=== PATIENT | male | born 1990 | race Caucasian/White ===

== ENCOUNTER 2016-06-19 08:06 | Emergency (ER) | payer OTHER ==
[~2016-06-19] VITALS: Ht 167.6 cm; Wt 101.8 kg
[2016-06-19 08:12] VITALS: BP 128/80
== END 2016-06-19 08:50 | disposition home or self-care (01) ==
LOC: ED 08:06
DX: S51.812D Laceration without foreign body of left forearm, subsequent encounter (principal); R53.81 Other malaise; F10.20 Alcohol dependence, uncomplicated; X58.XXXD Exposure to other specified factors, subsequent encounter; Y99.8 Other external cause status; Y92.89 Other specified places as the place of occurrence of the external cause

== ENCOUNTER 2017-09-06 09:12 | Emergency (ER) | payer OTHER ==
[~2017-09-06] VITALS: Ht 167.6 cm; Wt 98.4 kg
[2017-09-06 09:22] VITALS: BP 124/83; Ht 167.6 cm; Wt 98.4 kg
== END 2017-09-06 09:57 | disposition home or self-care (01) ==
LOC: ED 09:12
DX: J02.9 Acute pharyngitis, unspecified (principal); H66.93 Otitis media, unspecified, bilateral

== ENCOUNTER 2018-05-18 06:26 | Emergency (ER) | payer OTHER ==
[~2018-05-18] VITALS: Ht 167.6 cm; Wt 99.8 kg
[2018-05-18 06:30] VITALS: Ht 167.6 cm; Wt 99.8 kg
[2018-05-18 07:31] VITALS: BP 122/88
== END 2018-05-18 07:31 | disposition home or self-care (01) ==
LOC: ED 06:26
DX: H66.93 Otitis media, unspecified, bilateral (principal)

== ENCOUNTER 2019-04-18 21:15 | Emergency (ER) | payer OTHER ==
[~2019-04-18] VITALS: Ht 172.7 cm; Wt 104.8 kg
[2019-04-18 21:17] VITALS: Ht 172.7 cm; Wt 104.8 kg
[2019-04-18 23:41] LABS: BASOPHIL % 0.3 % (0-2); PLATELET COUNT 311 x10^3mcL (130-400); RED CELL DISTRIBUTION WIDTH 13.4 % (11.5-14.5)
[2019-04-18 23:54] LABS: UA SPECIFIC GRAVITY 1.025 (1.005-1.035); microscopic required? YES; urine erythrocyte 1+ (NEGATIVE)
[2019-04-19 00:09] LABS: CALCIUM 8.9 mg/dL (8.5-10.1); CARBON DIOXIDE 29.2 mmol/L (21-32); CHLORIDE SERUM 105 mmol/L (98-107); CREATININE SERUM 0.7 mg/dL (0.7-1.3); GFR1 > 60 mL/min; GLUCOSE SERUM 88 mg/dL (74-106); POTASSIUM SERUM 3.5 mmol/L (3.5-5.1); SODIUM SERUM 142 mmol/L (136-145)
[2019-04-19 00:17] LABS: ALKALINE PHOSPHATASE 69 U/L (46-116); ALT/SGPT 86 U/L (16-63); AST/SGOT 35 U/L (15-37); BILIRUBIN TOTAL 0.6 mg/dL (0.20-1.00); LIPASE 140 IU/L (73-393)
[2019-04-19 00:38] VITALS: BP 146/89
[2019-04-19 00:56] LABS: AMPHETAMINE QUAL UR NONE DETECTED (See below)
== END 2019-04-19 00:38 | disposition home or self-care (01) ==
LOC: ED 21:15
PROVIDERS: Emergency Medicine
DX: R10.11 Right upper quadrant pain (principal); R10.13 Epigastric pain; R05 Cough
CPT/HCPCS: 36415; G0480